=== PATIENT | female | born 1985 | race Caucasian/White ===

== ENCOUNTER → 2016-11-30 | Outpatient (CLI) | payer OTHER ==
--- NOTE | 2016-12-01 09:10 | HP ---
CHIEF COMPLAINT: The patient is here for her routine gynecologic exam. HPI: This is a 31-year-old G-0 with an LMP of 11/02/16. She is currently not using anything for control. The patient was seen on 03/04/15 because of chronic nipple discharge. She was found to have an elevated prolactin level. She was sent to Dr. Merlin Martines who is an analytics developer in [employer]. She was started on Dostinex for elevated prolactin and was advised to have some testing on her pituitary in the form of an imaging study. She states she thinks she took the medication for a brief period but had no follow up with this doctor. She states her periods are regular every month, lasting two days. She was told by one of her doctors that she may want to consider getting on control pills and she was told that this may help treatment of her bipolar disorder. She has not been actively trying to get but she is now wondering if she is able to get . She has not been using control for more than one year. PAST MEDICAL HISTORY: She was diagnosed with hepatitis C in 2011 and believes that she got this from IV drug use. Also, history of ADHD, anxiety, depression , bipolar disorder and thoracic outlet syndrome. She also has a history of asthma. History of elevated prolactin level. MEDICATIONS: 1. Adderall 20 mg t.i.d. 2. Prozac 40 mg daily. 3. Lamictal 300 mg daily. 4. Folic acid daily. 5. Vitamin D 5000 units weakly. ALLERGIES: PENICILLIN which caused hives. PAST SURGICAL HISTORY: Tubes placed in her ears as a child. 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 She had a colposcopy in 2010 but needed no other treatment according to the patient. She has no other history of STDs. SOCIAL HISTORY: She smokes about five cigarettes per day. She denies alcohol use. 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 She occasionally uses marijuana but not on a regular basis. She denies any other drug use. She states she has had about 20 sexual partners in her lifetime and has been sexually active since age 16. She has been with her boyfriend and she did live with him but is no longer living with him for legal reasons. FAMILY HISTORY: Mother has Grave's disease. Father had an HI and diabetes. Mother also had uterine fibroid and CHF. REVIEW OF SYSTEMS: Weight has been stable. She denies respiratory, cardiac or GI problems. PHYSICAL EXAM: Blood pressure 136/88, height 5'3", weight 155 pounds, temperature 96.6, pulse 92. This is a well-developed, well-nourished white female who is alert and oriented x3 in no acute distress. HEENT: Within normal limits. NECK: Supple without mass or thyromegaly. CHEST NAD LUNGS: Clear to auscultation. HEART: Regular rate and rhythm. BREASTS: Without mass or discharge. AXILLARY: Negative for adenopathy. BACK: Negative for CVA tenderness. ABDOMEN: Soft, nontender without palpable masses. PELVIC: Normal. EXTERNAL GENITALIA: Cervix and vagina appear normal. There is no unusual discharge. There is no cervical motion tenderness. The uterus is mid position , nongravid size and nontender. There are no palpable adnexal masses or tenderness. RECTAL: Deferred. EXTREMITIES: Nontender. IMPRESSION: 1. 31-year-old female with normal gynecologic exam, currently not using anything to prevent . 2. History of elevated prolactin with chronic nipple discharge. She states the nipple discharge has decreased and only notices a small amount of discharge with expressing the breast. The patient is seeing an analytics developer for this but did not have follow up after the initial visit. 3. Possible infertility which may be related to her elevated prolactin but there are other possible causes for infertility. PLAN: 1. Pap smear was performed. 2. Self breast examination was discussed. 3. GC and Chlamydia testing will be taken from the Pap smear. 4. I have stressed the importance of falling up with her analytics developer regarding her elevated prolactin and doing the appropriate workup and treatment. 5. We have discussed the option of infertility testing and treatment through an infertility specialist. 6. control options were discussed. At this time she is not interested in starting control pills and does not seem interested at this time to prevent as well. 7. I have stressed the importance of taking folic acid on a regular basis if there is any chance she will get . 8. If she does want to start control pills, I have asked that she have a letter from her primary care physician stating that she has normal liver function and that he does not see any reason why she could not start on control pills 9. She will return in one year and p.r.dona BLANCO
== END | disposition home or self-care (01) ==
LOC: WWCWWP 11:12
PROVIDERS: ATTEND Obstetrics & Gynecology
DX: Z01.419 Encounter for gynecological examination (general) (routine) without abnormal findings (principal)